=== PATIENT | female | born 1930 | race Caucasian/White ===

== ENCOUNTER → 2016-12-11 | Outpatient (REF) | payer MEDICARE, OTHER ==
[2016-12-11 18:43] LABS: URIC ACID 9.1 MG/DL (2.6-6.0)
== END ==
LOC: M LAB REF 16:57
PROVIDERS: ATTEND Internal Medicine
DX: M35.3 Polymyalgia rheumatica (principal); M79.672 Pain in left foot

== ENCOUNTER → 2017-01-16 | Outpatient (REF) | payer MEDICARE, OTHER | LOC: M LAB REF 17:19 | PROVIDERS: ATTEND Internal Medicine | DX: M10.9 Gout, unspecified (principal) ==

== ENCOUNTER → 2017-02-05 | Outpatient (REF) | payer MEDICARE, OTHER | LOC: M LAB REF 17:37 | PROVIDERS: ATTEND Internal Medicine | DX: M79.672 Pain in left foot (principal) ==

== ENCOUNTER → 2017-03-11 | Outpatient (REF) | payer MEDICARE, OTHER | LOC: M LAB REF 16:54 | PROVIDERS: ATTEND Internal Medicine | DX: M10.9 Gout, unspecified (principal); M35.3 Polymyalgia rheumatica ==

== ENCOUNTER → 2017-05-14 | Outpatient (REF) | payer MEDICARE, OTHER ==
[2017-05-14 14:23] LABS: URIC ACID 6.3 MG/DL (2.6-6.0)
== END ==
LOC: M LAB REF 13:25
DX: M10.9 Gout, unspecified (principal)
CPT/HCPCS: 84550

== ENCOUNTER → 2017-09-17 | Outpatient (REF) | payer MEDICARE, OTHER ==
[2017-09-17 18:48] LABS: URIC ACID 6.7 MG/DL (2.6-6.0)
== END ==
LOC: M LAB REF 17:27
DX: M10.9 Gout, unspecified (principal)
CPT/HCPCS: 84550

== ENCOUNTER → 2017-12-17 | Outpatient (REF) | payer MEDICARE, OTHER ==
[2017-12-19 09:16] LABS: URIC ACID 6.4 MG/DL (2.6-6.0)
== END ==
LOC: M LAB REF 16:14
DX: D51.9 Vitamin B12 deficiency anemia, unspecified (principal)
CPT/HCPCS: 82607; 84550

== ENCOUNTER 2018-07-25 20:38 | Emergency (ER) | payer MEDICARE, OTHER ==
[~2018-07-25] VITALS: Ht 157.5 cm; Wt 81.8 kg
[2018-07-25] MEDS ORDERED: PRED1TABL PO (20:52)
[2018-07-25] MEDS ORDERED: SPIR-10 PO (20:52)
[2018-07-25] MEDS ORDERED: SIMV20TA2 PO (20:52)
[2018-07-25] MEDS ORDERED: METO1TAB7 PO (20:52)
[2018-07-25] MEDS ORDERED: DESL5TAB4 PO (20:52)
[2018-07-25] MEDS ORDERED: VITA500T40 PO (20:52)
[2018-07-25] MEDS ORDERED: LASI40TA9 PO (20:52)
[2018-07-25] MEDS ORDERED: ALLO100T PO (20:52)
[2018-07-25 21:37] LABS: BASO % 0.5 % (0.0-1.0); EOS % 0.2 % (0.0-3.0); HEMATOCRIT 42.5 % (36.0-47.0); HEMOGLOBIN 14.1 g/dl (12.0-15.5); LYMPH # 1.4 10^3/uL (1.5-4.5); LYMPH % 16.3 % (24.0-44.0); MEAN CORPUSCULAR HEMOGLOBIN 33.2 pg (27.0-33.0); MEAN CORPUSCULAR HGB CONC 33.2 g/dl (32.0-36.5); MONO # 0.8 10^3/uL (0.0-0.8); MONO % 8.6 % (0.0-5.0); NEUTROPHILS # 6.5 10^3/uL (1.8-7.7); NEUTROPHILS % 73.6 % (36.0-66.0); PLATELET COUNT, AUTOMATED 204 10^3/uL (150-450); RED BLOOD COUNT 4.25 10^6/uL (4.00-5.40); WHITE BLOOD COUNT 8.9 10^3/uL (4.0-10.0)
[2018-07-25 21:52] LABS: CALCIUM LEVEL 8.4 MG/DL (8.8-10.2); CREATININE FOR GFR 1.24 MG/DL (0.55-1.30); ETHYL ALCOHOL (ETHANOL) 0.167 % (0.000-0.010); GLOMERULAR FILTRATION RATE 43.6 (>32); POTASSIUM SERUM 3.8 MEQ/L (3.5-5.1)
[2018-07-25 22:30] VITALS: BP 124/61
== END 2018-07-25 22:52 | disposition home or self-care (01) ==
LOC: M ED 20:38
DX: F10.129 Alcohol abuse with intoxication, unspecified (principal); E11.9 Type 2 diabetes mellitus without complications; I10 Essential (primary) hypertension; E78.5 Hyperlipidemia, unspecified; M19.90 Unspecified osteoarthritis, unspecified site; Z87.891 Personal history of nicotine dependence; Z79.899 Other long term (current) drug therapy; Z88.0 Allergy status to penicillin
CPT/HCPCS: 80048; 85025; 99284; G0480

== ENCOUNTER → 2019-07-26 | Outpatient (REF) | payer MEDICARE, OTHER ==
[~2019-07-26] MED LIST: ALLO100T PO; DESL1TAB3 PO; LASI40TA9 PO; METO1TAB7 PO; PRED1TABL PO; SIMV20TA22 PO; SPIR-10 PO; VITA500T40 PO
== END ==
LOC: M LAB REF 16:06
PROVIDERS: ATTEND Internal Medicine
DX: M35.3 Polymyalgia rheumatica (principal)

== ENCOUNTER → 2019-11-01 | Outpatient (REF) | payer MEDICARE, OTHER | LOC: M LAB REF 10:56 | PROVIDERS: ATTEND Internal Medicine | DX: M35.3 Polymyalgia rheumatica (principal) ==

== ENCOUNTER → 2020-01-31 | Outpatient (REF) | payer MEDICARE, OTHER ==
[2020-01-31 14:45] LABS: C REACTIVE PROTEIN QUANTITATIV 0.86 MG/DL (0.00-0.30); URIC ACID 6.2 MG/DL (2.6-6.0)
[2020-01-31 16:22] LABS: LYMPHOCYTES 26 % (16-44); MONOCYTES 7 % (0-5); NEUTROPHILS 67 % (28-66)
[2020-01-31 16:23] LABS: PLATELET ESTIMATE NORMAL (NORMAL)
== END ==
LOC: M LAB REF 12:30
PROVIDERS: ATTEND Internal Medicine
DX: M10.9 Gout, unspecified (principal); M35.3 Polymyalgia rheumatica

== ENCOUNTER 2020-03-24 13:49 | Emergency (ER) | payer MEDICARE, OTHER ==
[~2020-03-24] VITALS: Ht 157.5 cm; Wt 77.6 kg
[2020-03-24] MEDS ORDERED: ASPI-1 PO (14:00)
[2020-03-24] MEDS ORDERED: MULT1TAB8 PO (14:00)
[2020-03-24] MEDS ORDERED: PRED1TABL PO (14:00)
[2020-03-24] MEDS ORDERED: MUPI2OI TOP (14:58)
[2020-03-24 15:05] VITALS: BP 134/60
== END 2020-03-24 15:11 | disposition home or self-care (01) ==
LOC: M ED 13:49
DX: L01.00 Impetigo, unspecified (principal); I51.9 Heart disease, unspecified; E11.9 Type 2 diabetes mellitus without complications; I10 Essential (primary) hypertension; Z79.82 Long term (current) use of aspirin; Z79.899 Other long term (current) drug therapy; Z88.0 Allergy status to penicillin

== ENCOUNTER → 2020-05-02 | Outpatient (REF) | payer MEDICARE, OTHER ==
[~2020-05-02] MED LIST changes: +ASPI-1 PO; +MULT1TAB8 PO; +MUPI2OI TOP
[2020-05-02 19:39] LABS: ATYPICAL LYMPH 12 % (0-5); BASOPHILS 1 % (0-1); LYMPHOCYTES 23 % (16-44); MONOCYTES 1 % (0-5); NEUTROPHILS 63 % (28-66)
[2020-05-02 19:40] LABS: PLATELET CLUMPS SMALL AMT; PLATELET ESTIMATE NORMAL (NORMAL)
== END ==
LOC: M LAB REF 16:19
PROVIDERS: ATTEND Internal Medicine
DX: D72.89 Other specified disorders of white blood cells (principal)

== ENCOUNTER → 2020-05-03 | Outpatient (REF) | payer MEDICARE, OTHER | LOC: M LAB REF 15:18 | PROVIDERS: ATTEND Internal Medicine | DX: D72.89 Other specified disorders of white blood cells (principal) ==

== ENCOUNTER → 2020-06-17 | Outpatient (CLI) | payer MEDICARE, OTHER ==
[2020-06-17 11:01] LABS: HEMATOCRIT 42.7 % (36.0-47.0); HEMOGLOBIN 13.6 g/dl (12.0-15.5); MEAN CORPUSCULAR HEMOGLOBIN 31.9 pg (27.0-33.0); MEAN CORPUSCULAR HGB CONC 31.9 g/dl (32.0-36.5); MEAN CORPUSCULAR VOLUME 100.2 fl (80.0-96.0); PLATELET COUNT, AUTOMATED 190 10^3/uL (150-450); RED BLOOD COUNT 4.26 10^6/uL (4.00-5.40); WHITE BLOOD COUNT 7.2 10^3/uL (4.0-10.0)
[2020-06-17 11:25] LABS: ERYTHROCYTE SEDIMENTATION RATE 12 mm/hr (0-30)
== END ==
LOC: M LAB 10:18
PROVIDERS: ATTEND Ophthalmology
DX: R51.9 Headache, unspecified (principal); Z79.899 Other long term (current) drug therapy

== ENCOUNTER → 2020-07-03 | Outpatient (CLI) | payer MEDICARE, OTHER ==
--- NOTE | 2020-07-03 13:25 | REP ---
INDICATION: R/O LUMBAR FRACTURE, CHRONIC PREDNISONE USE. COMPARISON: None. TECHNIQUE: Plain films of the lumbar spine include AP lateral and obliques. FINDINGS: No fracture or malalignment. Degenerative loss of disc height notable at L4-5 and L5-S1 levels. There is anterior osteophytic spurring. On the sagittal and oblique images findings suggest foraminal narrowing at L4-5 and L5-S1 levels. There is diffuse osteopenia as well as osteophytic spurring. The aorta and distal vasculature demonstrates atherosclerotic calcification. IMPRESSION: No acute findings. Degenerative changes. Diffuse demineralization. <Electronically signed by Sathya Hill > 07/03/20 [id number]
--- NOTE | 2020-07-03 14:34 | REP ---
INDICATION: INFLAMMATORY POLYARTHROPATHY. COMPARISON: None. TECHNIQUE: Four views each hand FINDINGS: Right hand: There is advanced asymmetric intra digital joint space narrowing involving all intra digital joints and particularly the intra digital joint of the 1st digit and the DIP joints of digits 2 through 5. There is marginal osteophytosis seen involving the interphalangeal joint of the 1st digit and the DIP joints of digits 2 through 5 along with medial subluxation of the DIP joint of the 2nd digit and lateral subluxation of the DIP joint of the 4th digit. There is no evidence of an acute fracture. Degenerative changes are also seen involving the wrist Left hand: There is advanced intra digital joint space narrowing and marginal osteophyte formation seen involving the interphalangeal joint of the 1st digit, the DIP joints of digits 2 through 5, and the proximal interphalangeal joints of digits 3 through 5. There is mild medial subluxation of the DIP joints of digits 2 and 3 and lateral subluxation of the DIP joints of digits 4 and 5. Degenerative change are also seen involving the wrist. There is no evidence of acute fracture. IMPRESSION: Chronic changes as described above. <Electronically signed by Cristi Ngo > 07/03/20 [id number]
--- NOTE | 2020-07-03 14:36 | REP ---
INDICATION: JOINT PAIN. COMPARISON: None. TECHNIQUE: Four views of each wrist FINDINGS: Right wrist: Chronic changes are seen involving the 1st carpometacarpal joint with irregular joint space narrowing and subchondral sclerosis seen along with marginal osteophyte formation. There is no evidence of an acute fracture. Calcifications are seen in the region of the triangular fibrocartilage complex. Left wrist: Degenerative change seen involving the 1st carpometacarpal joint with irregular joint space narrowing, subchondral sclerosis, and marginal osteophyte formation. Calcifications are seen in the region of the triangular fibrocartilage complex. There is no evidence of an acute fracture. IMPRESSION: Chronic changes seen bilaterally as described above. <Electronically signed by Cristi Ngo > 07/03/20 [id number]
[2020-07-03 16:42] LABS: BASO % 0.3 % (0.0-1.0); EOS % 0.3 % (0.0-3.0); HEMATOCRIT 40.3 % (36.0-47.0); HEMOGLOBIN 12.9 g/dl (12.0-15.5); LYMPH # 1.3 10^3/uL (1.5-5.0); LYMPH % 13.5 % (24.0-44.0); MEAN CORPUSCULAR HEMOGLOBIN 31.7 pg (27.0-33.0); MONO % 10.6 % (2.0-8.0); NEUTROPHILS % 74.3 % (36.0-66.0); PLATELET COUNT, AUTOMATED 189 10^3/uL (150-450); RED BLOOD COUNT 4.07 10^6/uL (4.00-5.40); WHITE BLOOD COUNT 9.5 10^3/uL (4.0-10.0)
[2020-07-03 17:07] LABS: ERYTHROCYTE SEDIMENTATION RATE 43 mm/hr (0-30)
[2020-07-03 17:14] LABS: ALBUMIN 3.6 GM/DL (3.2-5.2); ALT/SGPT 32 U/L (12-78); BILIRUBIN,DIRECT 0.1 MG/DL (0.0-0.2); BILIRUBIN,TOTAL 0.3 MG/DL (0.2-1.0); BLOOD UREA NITROGEN 35 MG/DL (7-18); CALCIUM LEVEL 9.5 MG/DL (8.8-10.2); CARBON DIOXIDE LEVEL 27 MEQ/L (21-32); CHLORIDE LEVEL 102 MEQ/L (98-107); COMPLEMENT C3 119 MG/DL (90-180); COMPLEMENT C4 27 MG/DL (10-40); CREATININE FOR GFR 1.14 MG/DL (0.55-1.30); GLOMERULAR FILTRATION RATE 47.8 (>32); GLUCOSE, FASTING 100 MG/DL (70-100); POTASSIUM SERUM 5.1 MEQ/L (3.5-5.1); RHEUMATOID FACTOR QUANT < 10.0 IU/ML (<15.0); SODIUM LEVEL 135 MEQ/L (136-145)
[2020-07-05 10:51] LABS: DRVV SCREEN 73.9 SEC; PTT LUPUS TYPE ANTICOAG SCREEN 1.8 (0-1.2)
[2020-07-05 10:58] LABS: DRVV CONFIRM 38.2 SEC
[2020-07-05 11:02] LABS: NORMALIZED RATIO 1.8 (0.00-1.20)
[2020-07-08 02:06] LABS: HEXAGONAL PHASE PHOSPHOLIPID 0 sec (0-11)
== END ==
LOC: M RAD 12:06
PROVIDERS: ATTEND Internal Medicine
DX: M06.4 Inflammatory polyarthropathy (principal); M54.9 Dorsalgia, unspecified; M19.031 Primary osteoarthritis, right wrist; M19.032 Primary osteoarthritis, left wrist; M85.88 Other specified disorders of bone density and structure, other site; M51.36 Other intervertebral disc degeneration, lumbar region

== ENCOUNTER → 2020-07-12 | Outpatient (CLI) | payer MEDICARE, OTHER ==
--- NOTE | 2020-07-12 14:23 | REP ---
INDICATION: PAIN IN UNSPECIFIED HIP. COMPARISON: None. TECHNIQUE: Frontal view of the pelvis with neutral and frog-lateral views of the bilateral hips. FINDINGS: Generalized relatively symmetric degenerative changes through the pelvis and hips. Hip joints include increased sclerosis along the acetabular roof with marginal spurring and joint space narrowing. No acute fracture or dislocation. IMPRESSION: Symmetric degenerative changes. <Electronically signed by Jaison Rodriguez > 07/12/20 [id number]
== END ==
LOC: M RAD 13:57
PROVIDERS: ATTEND Internal Medicine
DX: M25.559 Pain in unspecified hip (principal); M24.159 Other articular cartilage disorders, unspecified hip; M25.759 Osteophyte, unspecified hip

== ENCOUNTER → 2020-07-14 | Outpatient (CLI) | payer MEDICARE, OTHER ==
--- NOTE | 2020-07-14 13:58 | DEXAMM ---
INDICATION: FINANCIAL DIRECTOR SYSTEMIC STEROID USE. COMPARISON: None. TECHNIQUE: Bone density was measured using dual-energy x-ray absorptionmetry (DEXA). FINDINGS: AP SPINE L1-L4 BMD 1.413 g/cm2 Young Adult T-Score 1.8 Age Matched Z-Score 3.8. LT FEMUR, TOTAL BMD 0.982 g/cm2 Young Adult T-Score -0.2 Age Matched Z-Score 2.3. LT NECK BMD 0.896 g/cm2 Young Adult T-Score -1.0 Age Matched Z-Score 1.6. RT FEMUR, TOTAL BMD 0.971 g/cm2 Young Adult T-Score -0.3 Age Matched Z-Score 2.2. RT NECK BMD 0.875 g/cm2 Young Adult T-Score -1.2 Age Matched Z-Score 1.4. IMPRESSION: There is normal bone density of the spine. There is low bone density of the left hip. There is low bone density of the right hip. FOLLOW-UP: Recommendation for the next bone density exam: 2 years. <Electronically signed by Laureano Renteria > 07/14/20 [id number]
== END ==
LOC: M WHC 13:02
PROVIDERS: ATTEND Internal Medicine
DX: Z51.81 Encounter for therapeutic drug level monitoring (principal); Z79.52 Long term (current) use of systemic steroids; M85.851 Other specified disorders of bone density and structure, right thigh; M85.852 Other specified disorders of bone density and structure, left thigh

== ENCOUNTER → 2021-02-12 | Outpatient (REF) | payer MEDICARE, OTHER ==
[2021-02-12 17:54] LABS: LYMPHOCYTES 17 % (16-44); MONOCYTES 7 % (0-5); NEUTROPHILS 76 % (28-66); PLATELET ESTIMATE NORMAL (NORMAL)
[2021-02-12 17:55] LABS: ANISOCYTOSIS 1+
== END ==
LOC: M LAB REF 16:25
PROVIDERS: ATTEND Internal Medicine
DX: D72.9 Disorder of white blood cells, unspecified (principal)